=== PATIENT | male | born 1950 | race Caucasian/White ===

== ENCOUNTER → 2016-06-02 | Outpatient (CLI) | payer MEDICARE, OTHER ==
[~2016-06-02] MED LIST: PRED20TA PO
[2016-06-02 10:01] LABS: ANION GAP 11.9 MEQ/L (3-15)
== END ==
LOC: LAB 09:34
PROVIDERS: ATTEND Physician Assistant
DX: R41.89 Other symptoms and signs involving cognitive functions and awareness (principal)
CPT/HCPCS: 36415; 80048

== ENCOUNTER → 2016-06-03 | Outpatient (CLI) | payer MEDICARE, OTHER ==
--- NOTE | 2016-06-03 11:43 | Diagnostic Imaging Report ---
PROCEDURE: CT head with and without contrast. TECHNIQUE: Multiple contiguous axial images were obtained through the brain before and after the administration of intravenous contrast. INDICATION: Cognitive function changes in awareness. Dizziness. Memory loss. EXAMINATION: CT of the brain with and without contrast 06/03/2016. COMPARISON: No priors available for comparison. FINDINGS: No hemorrhage or infarct is seen. No mass, mass effect or midline shift is noted. There is no hydrocephalus. Postcontrast imaging was performed. No masses are appreciated with no abnormal enhancement visualized. The paranasal sinuses and mastoid air cells demonstrate no evidence for acute disease. There is mild mucosal thickening within the ethmoid air cells and visualized maxillary sinuses. IMPRESSION: No acute process. Dictated by: Dictated on workstation # [id number]
== END ==
LOC: RAD 10:08
PROVIDERS: ATTEND Physician Assistant
DX: R41.89 Other symptoms and signs involving cognitive functions and awareness (principal)
CPT/HCPCS: 70470; Q9967